=== PATIENT | male | born 1960 | race Hispanic/Latino ===

== ENCOUNTER 2020-12-24 18:28 | Emergency (ER) | payer BC ==
[~2020-12-24] VITALS: Ht 162.6 cm; Wt 68.0 kg
[~2020-12-24 18:28] MED LIST: ACTOS45 MG PO; LOSARTAN PO; LOSARTAN-HCTZ1 EACH PO; LOVASTATIN PO; METFORMIN HCL850 MG PO; TRIAMTERENE PO; TRIAMTERENE-HCTZ1 EA PO
[2020-12-24 19:11] LABS: ANION GAP 13.4 mmol/L (8-16); CALCIUM 9.6 mg/dL (8.4-10.2); CREATININE, SERUM 1.16 mg/dL (0.72-1.25)
[2020-12-24 19:12] LABS: POTASSIUM 5.4 mmol/L (3.5-5.1)
[2020-12-24] MEDS ORDERED: SODIUM CHLORIDE 0.9% 1000ML 1,000 ML IV SCH (19:30)
[2020-12-24] MEDS ORDERED: FUROSEMIDE INJ 10 MG/ML 2 ML VIAL IV ONE (19:30)
[2020-12-24 21:16] LABS: ANION GAP 14.3 mmol/L (8-16); CALCIUM 8.3 mg/dL (8.4-10.2); CREATININE, SERUM 1.06 mg/dL (0.72-1.25); POTASSIUM 5.3 mmol/L (3.5-5.1)
[2020-12-24] MEDS ORDERED: SPS15 GM/60 M PO (21:44)
[2020-12-25 04:33] VITALS: BP 136/85
== END 2020-12-24 21:10 | disposition home or self-care (01) ==
LOC: ER 18:40
DX: E87.5 Hyperkalemia (principal); I10 Essential (primary) hypertension; E11.65 Type 2 diabetes mellitus with hyperglycemia; E78.5 Hyperlipidemia, unspecified
CPT/HCPCS: 36415; 80048; 93005; 99284; J1940; J7030